=== PATIENT | male | born 1980 | race Caucasian/White ===

== ENCOUNTER 2024-11-11 08:57 | Day surgery (SDC) | payer MEDICAID ==
[~2024-11-11] VITALS: Ht 175.3 cm; Wt 84.1 kg
[~2024-11-11 08:57] MED LIST: ACET-3385 PO; RINGERS SOLUTION,LACTATED 1,000 ML IV ONE; SODIUM CHLORIDE 0.9% 1,000 ML ONE
[2024-11-11] MEDS: SODIUM CHLORIDE 0.9% 1,000 ML IV ONE (10:18)
[2024-11-11] MEDS ORDERED: PROPOFOL 1% 20 ML VIAL IVP ONE (12:00)
[2024-11-11] MEDS ORDERED: LIDOCAINE/PF 2% 5 ML VIAL ONE (12:00)
[2024-11-11] MEDS ORDERED: OXYGEN THERAPY IH SCH (20:00)
== END 2024-11-11 13:45 | disposition home or self-care (01) ==
LOC: SURGERY 08:57
PROVIDERS: ATTEND Specialist
DX: K21.9 Gastro-esophageal reflux disease without esophagitis (principal); K29.70 Gastritis, unspecified, without bleeding; Z79.899 Other long term (current) drug therapy; Z98.890 Other specified postprocedural states
CPT/HCPCS: 43239; 88305; C1769; J2704; J3490; J7030